=== PATIENT | female | born 1995 | race Caucasian/White ===

== ENCOUNTER 2016-06-11 20:46 | Inpatient (IN) | payer OTHER ==
[~2016-06-11] VITALS: Ht 167.6 cm; Wt 56.3 kg
[2016-06-11 22:41] LABS: BASOPHIL COUNT 0.1 K/uL (0-0.1); EOSINOPHIL (%) 1.4 % (0-5); EOSINOPHIL COUNT 0.1 K/uL (0-0.3); HEMATOCRIT 41.1 % (36.0-46.0); IMMATURE GRANULOCYTE (%) 0.3 % (0.0-0.7); INSTRUMENT ABS NEUTROPHIL CT 6.5 K/uL; LYMPHOCYTE COUNT 2.7 K/uL (1.0-2.8); MCH 28.6 PG (29.0-34.0); MCHC 32.4 G/DL (30.0-36.0); MCV 88.4 FL (83-99); MEAN PLAT.VOLUME 8.9 uM^3 (9.5-12.4); MONOCYTE (%) 5.7 % (3-12); MONOCYTE COUNT 0.6 K/uL (0-0.8); NEUTROPHIL (%) 64.9 % (45-76); NEUTROPHIL COUNT 6.5 K/uL (1.8-6.4); PLATELET COUNT 271 K/uL (156-360); RBC DIS.WIDTH-CV 14.2 % (11.8-14.6); RBC DIS.WIDTH-SD 45.7 % (39-53); RED BLOOD COUNT 4.65 M/uL (3.80-5.20)
[2016-06-11 22:51] LABS: CHLORIDE 103 mEq/L (99-109); POTASSIUM 4.1 mEq/L (3.7-5.4); SODIUM 140 mEq/L (136-147)
[2016-06-11 22:54] LABS: GLUCOSE 119 mg/dL (70-99)
[2016-06-11 22:55] LABS: ANION GAP 10 MEQ/L (2-14)
[2016-06-11 22:56] LABS: TOTAL BILIRUBIN 0.1 mg/dL (0.0-1.0)
[2016-06-11 22:57] LABS: ALKALINE PHOSPHATASE 71 IU/L (3-129); BILIRUBIN NEGATIVE; BLOOD NEGATIVE; COLOR YELLOW ((YELLOW)); GLUCOSE (STRIP) NEGATIVE; KETONES 5; LEUKOCYTES NEGATIVE; NITRITE NEGATIVE; PROTEIN (STRIP) 30; SERUM ETHYL ALCOHOL < 10 mg/dL; SPECIFIC GRAVITY 1.027 (1.000-1.030); UROBILINOGEN 0.2 MG/DL (0.2-1.0)
[2016-06-11 22:58] LABS: GFR ESTIMATE (CALCULATED) > 59 mL/min/
[2016-06-11 22:59] LABS: UREA NITROGEN (BUN) 13 mg/dL (9-23)
[2016-06-11 23:00] LABS: ADD MIUA? NO; UCUL ADDED? NO
[2016-06-11 23:01] LABS: ADD MEDTOX COMMENT Y; AMPHETAMINE NEGATIVE (500 ng/mL); BARBITURATES NEGATIVE (200 ng/mL); BENZODIAZEPINES NEGATIVE (150 ng/mL); COCAINE PRESUMPTIVE POSITIVE (150 ng/mL); INTERNAL CONTROLS VALID? YES; METHADONE NEGATIVE (200 ng/mL); METHAMPHETAMINE NEGATIVE (500 ng/mL); OPIATES (MORPHINE) PRESUMPTIVE POSITIVE (100 ng/mL); OXYCODONE NEGATIVE (100 ng/mL); PHENCYCLIDINE NEGATIVE (25 ng/mL); PROPOXYPHENE NEGATIVE (300 ng/mL); THC CANNABINOIDS NEGATIVE (50 ng/mL); TRICYCLIC ANTIDEPRESSANTS NEGATIVE (300 ng/mL)
[2016-06-11 23:06] LABS: QUANTITATIVE HCG < 4.0 MIU/ML
[2016-06-12 04:21] VITALS: BP 95/78
[2016-06-12 07:41] VITALS: BP 110/68
[2016-06-12 11:48] VITALS: BP 108/55
[2016-06-12 15:31] VITALS: BP 100/63
[2016-06-13 07:48] VITALS: BP 110/55
[2016-06-13 13:21] LABS: HIV INDEX 0.21; HIV-1/2 AB/AG COMBO Nonreactive
[2016-06-13 15:49] VITALS: BP 94/61
[2016-06-14 09:28] VITALS: BP 111/58
[2016-06-14 11:30] LABS: TREPONEMA ANTIBODY NEGATIVE (NEGATIVE)
[2016-06-14 16:14] VITALS: BP 105/56
[2016-06-15 08:03] VITALS: BP 87/53
[2016-06-15 16:04] VITALS: BP 95/54
[2016-06-16 08:11] VITALS: BP 86/56
[2016-06-16 16:02] VITALS: BP 106/64
[2016-06-17 08:41] VITALS: BP 99/58
[2016-06-17] MEDS ORDERED: SERTRALINE HCL50 MG PO (08:58)
[2016-06-17] MEDS ORDERED: DIVALPROEX SOD500 M1 PO (08:58)
[2016-06-17] MEDS ORDERED: BUPRENORPHIN-N1 EACH SL (08:58)
[2016-06-17] MEDS ORDERED: TRAZODONE HCL50 MG PO (08:59)
== END 2016-06-17 12:30 | disposition other institution (70) | DRG 881 ==
LOC: EME 20:46 → EDOF 06-12 00:39 → 1WEST 06-12 00:39
PROVIDERS: Emergency Medicine; Nurse Practitioner Family
DX: F32.9 Major depressive disorder, single episode, unspecified (principal); F11.24 Opioid dependence with opioid-induced mood disorder; F14.10 Cocaine abuse, uncomplicated; R45.851 Suicidal ideations; B37.9 Candidiasis, unspecified; R56.9 Unspecified convulsions; M62.838 Other muscle spasm; F17.210 Nicotine dependence, cigarettes, uncomplicated; Z72.51 High risk heterosexual behavior; Z62.810 Personal history of physical and sexual abuse in childhood; Z59.0 Homelessness
CPT/HCPCS: 71020; 80053; 81003; 84702; 84999; 85025; 86703; 86780; 90839; 97150 GO; 97165 GO; 99281; 99285; G0480; J0572; J0574; Q0177